=== PATIENT | male | born 1970 | race Caucasian/White ===

== ENCOUNTER → 2016-08-10 | Outpatient (CLI) | payer OTHER ==
--- NOTE | 2016-08-10 14:05 | REP ---
MRI RIGHT HIP WITHOUT CONTRAST: HISTORY: Osteoarthritis. Right hip pain. Difficulty ambulating. Comparison radiographs are from June 12, 2016. TECHNIQUE: Coronal images of both hips are obtained with T1 and fat sat T2 weighting. Oblique coronal, axial, sagittal imaging planes utilized. T1 and T2-weighted scans were obtained. FINDINGS: There is moderate osteoarthritis with joint space and cartilage loss is at the superior weightbearing surface. No flattening is seen but there is extensive subcortical cyst formation on the acetabular side of the joint and minimal subcortical cyst formation is seen on the femoral side of the joint. There is fluid across the base of the superior acetabular labral cartilage. There is femoral and acetabular osteophyte formation. A small quantity of joint fluid is visible in the right hip. No loose body is appreciated. There are milder changes on the left with subcortical cyst formation, degenerative labral change and osteophyte formation as well. There is minimal spurring of the symphysis pubis. No pelvic mass adenopathy or free fluid is seen. Cortical and medullary bone signal intensity are otherwise normal. There is no evidence to suggest avascular necrosis. IMPRESSION: Bilateral hip joint osteoarthritis, moderate on the right and mild on the left. There is extensive subcortical cyst formation in the superior acetabular region and superior joint space loss is seen. Well established osteophyte formation. Signed by Felipe Quiroz MD 08/10/2016 03:19 P
== END ==
LOC: M RAD 10:19
PROVIDERS: ATTEND Surgery
DX: M16.0 Bilateral primary osteoarthritis of hip (principal); M85.48 Solitary bone cyst, other site